=== PATIENT | male | born 1990 | race African-American/Black ===

== ENCOUNTER 2024-02-25 19:32 | Emergency (ER) | payer MEDICAID ==
[~2024-02-25] VITALS: Ht 177.8 cm; Wt 215.0 kg
[2024-02-25 19:36] VITALS: TEMP 98
[2024-02-25 21:01] VITALS: BP 124/68; PULSE 75; RESP 18
== END 2024-02-25 21:17 | disposition home or self-care (01) ==
LOC: EMS 19:32
DX: T16.1XXA Foreign body in right ear, initial encounter (principal); F17.210 Nicotine dependence, cigarettes, uncomplicated; F12.90 Cannabis use, unspecified, uncomplicated; W44.G1XA Audio device entering into or through a natural orifice, initial encounter; Y93.89 Activity, other specified; Y92.89 Other specified places as the place of occurrence of the external cause; Y99.8 Other external cause status
CPT/HCPCS: 99281; Z7502